=== PATIENT | female | born 1990 | race Caucasian/White ===

== ENCOUNTER 2017-04-17 15:06 | Inpatient (IN) | payer MEDICAID, OTHER ==
[~2017-04-17] VITALS: Ht 157.5 cm; Wt 83.0 kg
[~2017-04-17 15:06] MED LIST: ALBU18HF INHALATION; ALBU8.5H3 INH; PRED20TA PO
[2017-04-17 15:25] VITALS: BP 109/58; PULSE 110; RESP 20
[2017-04-17 15:28] VITALS: Ht 157.5 cm; Wt 83.0 kg
[2017-04-17] MEDS ORDERED: LACTATED RINGER'S 1,000 ML IV ONE (16:30)
--- NOTE | 2017-04-17 17:16 | HP ---
Date/Time of Note Date/Time of Note DATE: 04/17/17 TIME: 17:15 OB - History Hx of Present Free Text/Dictation @37+wks in early labor : 3 Para: 2 Care: Good Care Ultrasounds: Normal mid trimester US Obstetrical Complications: None Past Family/Social History * Past Medical, Surgical, Family and Obstetric Histories reviewed from chart. OB Admission Exam Vital Signs Vital Signs Vital Signs Date Time Temp Pulse Resp B/P Pulse Ox O2 Delivery O2 Flow Rate FiO2 04/17/17 15:25 97.8 110 20 109/58 96 Room Air Physical Exam Extremities: Normal Reflexes: Normal Cervical Dilatation: 1cm Effacement: 75% Station: -1 Membranes: Intact Heart Rate: 140's Accelerations: Accelerations Present Decelerations: No Decelerations Varibility: Moderate Contractions on Admission: < 5 Minutes Apart OB Assessment/Plan Reason for admission: observation Plan: Expectant Management KARAN HOBSON M.D. Apr 17, 2017 17:16
[2017-04-17] MEDS ORDERED: LIDOCAINE 1% (MPF) 30 ML INJ INJ PRN (17:30)
[2017-04-17] MEDS ORDERED: OXYTOCIN 30 UNITS/LR 500 ML IV PRN (17:30)
[2017-04-17] MEDS ORDERED: MISOPROSTOL 200 MCG TAB PR PRN (17:30)
[2017-04-17] MEDS ORDERED: CARBOPROST 250 MCG INJ IM PRN (17:30)
[2017-04-17] MEDS ORDERED: AMPICILLIN 2 GM/NS (PMX) 100 ML IV ONE (17:30)
[2017-04-17] MEDS ORDERED: IBUPROFEN 600 MG TAB PO PRN (17:30)
[2017-04-17] MEDS ORDERED: METHYLERGONOVINE 0.2 MG INJ IM PRN (17:30)
[2017-04-17] MEDS ORDERED: BUTORPHANOL 2 MG INJ IV PRN (17:30)
[2017-04-17] MEDS: LACTATED RINGER'S 1,000 ML IV SCH ×2 (17:46→21:43)
[2017-04-17] MEDS ORDERED: OXYTOCIN 30 UNITS/LR 500 ML IV SCH ×3 (18:00→21:00)
[2017-04-17] MEDS ORDERED: LACTATED RINGER'S 1,000 ML IV PRN (18:00)
--- NOTE | 2017-04-17 18:08 | RADRPT ---
PROCEDURE: US OB. CLINICAL INDICATION: Uncertain size and dates. No care. TECHNIQUE: Multiple sonographic images of the uterus were obtained. The images were revi ewed on a PACS workstation. COMPARISON: No prior studies are available for comparison. FINDINGS: There is a single live intrauterine gestation. heart rate is 128 beats per minute. Measurements were made in order to determine age. The results are as follows: BPD = 9.04 cm. HC = 32.91 cm. AC = 35.35 cm. FL = 7.39 cm. Estimated weight is 3480 +/- 522 grams. LMP growth percentile is 88 %. Menstrual age by ultrasound dates is 37 weeks 6 days. The estimated date of delivery is 05/02/2017. Amniotic fluid index is 16.7 cm. Position is cephalic and placenta is anterior grade II. There is no evidence for an abruption or leona centa previa. IMPRESSION: 1. Single live intrauterine gestation of 37 weeks 6 days menstrual age by ultrasound dates. 2. The estimated date of delivery is 05/02/2017. RPTAT: QQ .Quinton Rich MD, Date Time Electronically viewed and signed by .Quinton Rich MD, on 04/17/2017 18:07 .R/
[2017-04-17 18:14] LABS: ADD SCAN DIFF NO
[2017-04-17 18:16] LABS: BASOPHILS % 0.3 % (0.0-2.0); EOSINOPHILS # 0.2 10^3/ul (0.0-0.5); EOSINOPHILS % 1.4 % (0.0-7.0); HEMATOCRIT 31.1 % (37.0-47.0); HEMOGLOBIN 10.6 g/dl (12.0-16.0); LYMPHOCYTES # 3.1 10^3/ul (0.8-2.9); LYMPHOCYTES % 20.3 % (15.0-51.0); MEAN CORPUSCULAR HEMOGLOBIN 30.6 pg (29.0-33.0); MEAN CORPUSCULAR HGB CONC 34.1 g/dl (32.0-37.0); MEAN CORPUSCULAR VOLUME 89.9 fl (82.0-101.0); MONOCYTES % 6.6 % (0.0-11.0); NEUTROPHIL # 10.6 10^3/ul (1.6-7.5); NEUTROPHILS % 69.7 % (39.0-77.0); PLATELET COUNT 305 10^3/UL (140-415); RED BLOOD COUNT 3.46 10^6/ul (4.20-5.40); RED CELL DISTRIBUTION WIDTH 13.2 % (11.5-14.5); WHITE BLOOD COUNT 15.2 10^3/ul (4.8-10.8)
[2017-04-17 18:38] LABS: INR 0.99; PARTIAL THROMBOPLASTIN TIME 26.2 Sec (25.0-35.0); PROTIME 13.1 Sec (12.2-14.2)
[2017-04-17] MEDS ORDERED: FENTAnyl 2MCG/ML-ROPIV 0.2% 100 ML ONE (19:48)
[2017-04-17] MEDS ORDERED: NALOXONE (0.4 MG/ML) INJ IV PRN (21:00)
[2017-04-17] MEDS ORDERED: DIPHENHYDRAMINE 50 MG INJ IV PRN (21:00)
[2017-04-17] MEDS ORDERED: ONDANSETRON 4 MG INJ IV PRN (21:00)
[2017-04-17] MEDS: FENTAnyl 2MCG/ML-ROPIV 0.2% 100 ML BAG EPI SCH (21:22)
[2017-04-17] MEDS: AMPICILLIN 1 GM/NS (PMX) 50 ML IV SCH (21:43)
[2017-04-17 23:43] LABS: BARBITURATES Negative (NEGATIVE); BENZODIAZEPINES Negative (NEGATIVE); CANNABINOIDS Negative (NEGATIVE); COCAINE Negative (NEGATIVE); OPIATES Negative (NEGATIVE)
[2017-04-18] MEDS: LACTATED RINGER'S 1,000 ML IV SCH ×2 (00:19→08:40)
[2017-04-18] MEDS: AMPICILLIN 1 GM/NS (PMX) 50 ML IV SCH ×3 (01:58→10:06)
[2017-04-18] MEDS ORDERED: OXYTOCIN 30 UNITS/LR 500 ML IV SCH ×2 (06:30→13:24)
[2017-04-18] MEDS: FENTAnyl 2MCG/ML-ROPIV 0.2% 100 ML BAG EPI SCH (08:20)
--- NOTE | 2017-04-18 10:55 | LDN ---
Date/Time of Note Date/Time of Note DATE: 04/18/17 TIME: 10:54 Delivery Summary term Placenta Delivered: Spontaneously Perineal laceration: 1 Anesthesia type: Epidural Estimated blood loss: 350 Sponge & Needle done & correct: Yes All needle counts correct: Yes Any foreign bodies felt in the: No Problems: MISTI DORAN MD Apr 18, 2017 10:55
--- NOTE | 2017-04-18 10:56 | DS ---
Date/Time of Note Date/Time of Note DATE: 04/18/17 TIME: 10:56 Discharge Summary Admission/Discharge Info Admit Date/Time Apr 17, 2017 at 17:30 Discharge Date/Time Discharge Diagnosis term preg Patient Condition: Stable Hospital Course unremarkable Home Meds Active Scripts Albuterol Sulfate* (Ventolin HFA*) 18 Gm Hfa.aer.ad, 2 PUFF INHALATION Q4H, #1 INHALER Prov:DEVON GURROLA MD 02/18/16 Prednisone* (Prednisone*) 20 Mg Tab, 60 MG PO DAILY for 4 Days, TAB Prov:DEVON GURROLA MD 02/18/16 Reported Medications Albuterol Sulfate* (Proair HFA*) 8.5 Gm Hfa.aer.ad, 2 PUFF INH Q4H Y for WHEEZING AND SOB, #1 INHALER 02/14/16 Primary Care Provider [facility] Pending Labs Laboratory Tests Test 04/17/17 18:08 04/17/17 20:30 White Blood Count 15.210^3/ul (4.8-10.8) Red Blood Count 3.4610^6/ul (4.20-5.40) Hemoglobin 10.6g/dl (12.0-16.0) Hematocrit 31.1% (37.0-47.0) Mean Corpuscular Volume 89.9fl (82.0-101.0) Mean Corpuscular Hemoglobin 30.6pg (29.0-33.0) Mean Corpuscular Hemoglobin Concent 34.1g/dl (32.0-37.0) Red Cell Distribution Width 13.2% (11.5-14.5) Platelet Count 09340^3/UL (140-415) Mean Platelet Volume 10.0fl (7.4-10.4) Neutrophils % 69.7% (39.0-77.0) Lymphocytes % 20.3% (15.0-51.0) Monocytes % 6.6% (0.0-11.0) Eosinophils % 1.4% (0.0-7.0) Basophils % 0.3% (0.0-2.0) Nucleated Red Blood Cells % 0.0/100WBC (0.0-0.0) Neutrophils # 10.610^3/ul (1.6-7.5) Lymphocytes # 3.110^3/ul (0.8-2.9) Monocytes # 1.010^3/ul (0.3-0.9) Eosinophils # 0.210^3/ul (0.0-0.5) Basophils # 0.010^3/ul (0.0-0.1) Nucleated Red Blood Cells # 0.010^3/ul (0.0-0.0) Prothrombin Time 13.1Sec (12.2-14.2) Prothrombin Time Ratio 1.0 INR International Normalized Ratio 0.99 Activated Partial Thromboplast Time 26.2Sec (25.0-35.0) Hepatitis B Surface Antigen NEGATIVE (NEGATIVE) HIV (1&2) Antibody NEGATIVE (NEGATIVE) Urine Opiates Screen Negative (NEGATIVE) Urine Barbiturates Negative (NEGATIVE) Urine Amphetamines Screen Negative (NEGATIVE) Urine Benzodiazepines Screen Negative (NEGATIVE) Urine Cocaine Screen Negative (NEGATIVE) Urine Cannabinoids Negative (NEGATIVE) MISTI DORAN MD Apr 18, 2017 10:56
[2017-04-18] MEDS ORDERED: LACTATED RINGER'S 1,000 ML IV* SCH (13:24)
[2017-04-18] MEDS ORDERED: OXYTOCIN 30 UNITS/LR 500 ML IV PRN (13:30)
[2017-04-18] MEDS ORDERED: METHYLERGONOVINE 0.2 MG INJ IM PRN (13:30)
[2017-04-18] MEDS ORDERED: SENNA/DOCUSATE NA (8.6MG/50MG) TAB PO PRN (13:30)
[2017-04-18] MEDS ORDERED: CARBOPROST 250 MCG INJ IM PRN (13:30)
[2017-04-18] MEDS ORDERED: DIPHENHYDRAMINE 25 MG CAP PO PRN (13:30)
[2017-04-18] MEDS ORDERED: LANOLIN 7 GM TUBE TOP PRN (13:30)
[2017-04-18] MEDS ORDERED: ZOLPIDEM 5 MG TAB PO PRN (13:30)
[2017-04-18] MEDS ORDERED: MAGNESIUM HYDROXIDE 30ML CUP PO PRN (13:30)
[2017-04-18] MEDS ORDERED: WITCH HAZEL/GLYCERIN PAD PR PRN (13:30)
[2017-04-18] MEDS ORDERED: ACETAMINOPHEN 325 MG TAB PO PRN (13:30)
[2017-04-18] MEDS ORDERED: BENZOCAINE 20% 56 ML SPRAY TOP PRN (13:30)
[2017-04-18] MEDS ORDERED: MISOPROSTOL 200 MCG TAB PR PRN (13:30)
[2017-04-18] MEDS: ACETAMINOPHEN/CODEINE #3 TAB PO PRN ×2 (13:34→22:03)
[2017-04-18 14:30] VITALS: BP 129/79; PULSE 102; RESP 18
[2017-04-18] MEDS: IBUPROFEN 800 MG TAB PO SCH (17:51)
[2017-04-18 20:30] VITALS: BP 128/79; PULSE 79; RESP 20
[2017-04-18 23:45] VITALS: BP 99/58; PULSE 74; RESP 17
[2017-04-19 04:15] VITALS: BP 104/66; PULSE 83; RESP 18
[2017-04-19] MEDS: IBUPROFEN 800 MG TAB PO SCH ×5 (05:53→23:57)
[2017-04-19 08:00] VITALS: BP 108/74; PULSE 56; RESP 18
--- NOTE | 2017-04-19 08:13 | QN ---
Documentation Comment doing well vss abd soft d/c home next am MISTI DORAN MD Apr 19, 2017 08:13
[2017-04-19 08:22] LABS: ADD SCAN DIFF NO
[2017-04-19 08:43] LABS: BASOPHIL # 0.1 10^3/ul (0.0-0.1); BASOPHILS % 0.4 % (0.0-2.0); EOSINOPHILS # 0.3 10^3/ul (0.0-0.5); EOSINOPHILS % 1.6 % (0.0-7.0); HEMOGLOBIN 10.4 g/dl (12.0-16.0); LYMPHOCYTES # 2.6 10^3/ul (0.8-2.9); LYMPHOCYTES % 14.5 % (15.0-51.0); MEAN CORPUSCULAR HEMOGLOBIN 30.2 pg (29.0-33.0); MEAN CORPUSCULAR HGB CONC 33.5 g/dl (32.0-37.0); MEAN CORPUSCULAR VOLUME 90.1 fl (82.0-101.0); MEAN PLATELET VOLUME 10.6 fl (7.4-10.4); MONOCYTE # 1.1 10^3/ul (0.3-0.9); NEUTROPHIL # 13.5 10^3/ul (1.6-7.5); NEUTROPHILS % 76.8 % (39.0-77.0); PLATELET COUNT 303 10^3/UL (140-415); RED BLOOD COUNT 3.44 10^6/ul (4.20-5.40); RED CELL DISTRIBUTION WIDTH 13.6 % (11.5-14.5); WHITE BLOOD COUNT 17.6 10^3/ul (4.8-10.8)
[2017-04-19 16:57] VITALS: BP 109/68; PULSE 94; RESP 18
[2017-04-19 19:45] VITALS: BP 101/64; PULSE 67; RESP 18
[2017-04-19 23:45] VITALS: BP 105/56; PULSE 66; RESP 17
[2017-04-20 04:30] VITALS: BP 108/65; PULSE 73; RESP 17
[2017-04-20] MEDS: IBUPROFEN 800 MG TAB PO SCH ×3 (05:39→18:05)
[2017-04-20 07:22] VITALS: BP 128/70; PULSE 82; RESP 18
[2017-04-20] MEDS ORDERED: VARICELLA VACCINE LIVE/PF 1,350 UNIT/0.5 ML ML SC* ONE (09:00)
[2017-04-20] MEDS ORDERED: MEASLES,MUMPS,RUBELLA VACCINE INJ SC* ONE (09:00)
[2017-04-20] MEDS ORDERED: DIPHTH/TET/ACEL PERTUSS (ADULT) 0.5 ML VIAL IM* ONE (09:00)
[2017-04-20 14:10] LABS: RUBELLA ANTIBODY - IGG 1.09 index
== END 2017-04-20 18:05 | disposition home or self-care (01) | DRG 775 ==
LOC: OBT 15:06 → L-D 15:07 → OBT 17:30 → PP1 04-18 13:22
PROVIDERS: ADMIT Obstetrics & Gynecology; ATTEND Obstetrics & Gynecology
PROC: 10E0XZZ Delivery of Products of Conception, External Approach (ICD-10-PCS; principal; 2017-04-18)
PROC: 0HQ9XZZ Repair Perineum Skin, External Approach (ICD-10-PCS; 2017-04-18)
DX: O70.0 First degree perineal laceration during delivery (principal); E66.9 Obesity, unspecified; O99.214 Obesity complicating childbirth; Z68.33 Body mass index [BMI] 33.0-33.9, adult; Z3A.37 37 weeks gestation of pregnancy; Z37.0 Single live birth
CPT/HCPCS: 62319; 76815; 80307; 85025; 85610; 85730; 86592; 86703; 86762; 86885; 86900; 86901; 87340; 90715; 90716; 96360; 96361; G0463; J0290; J2590; J3010; J7120

== ENCOUNTER 2018-02-14 10:11 | Emergency (ER) | END 2018-02-14 18:49 | disposition home or self-care (01) ==

== ENCOUNTER 2018-04-23 23:27 | Emergency (ER) | END 2018-04-24 01:24 | disposition home or self-care (01) ==

== ENCOUNTER 2018-07-16 21:04 | Emergency (ER) | END 2018-07-16 23:50 | disposition home or self-care (01) ==